=== PATIENT | male | born 1970 | race Caucasian/White ===

== ENCOUNTER 2020-04-21 13:50 | Outpatient (CLI) | payer BC, SELFPAY | END 2020-04-21 13:51 | disposition home or self-care (01) | LOC: CHSLAB 13:55 | PROVIDERS: PCP Family Medicine; Visit Provider Specialist | DX: L92.0 Granuloma annulare (principal) | CPT/HCPCS: 88305 ==

== ENCOUNTER 2021-06-28 00:39 | Day surgery (SDC) | payer BC, SELFPAY ==
[2021-06-11 15:25] VITALS: BMI 31.1
[2021-06-28 10:32] VITALS: BP 147/99; PULSE 91; RESP 18; TEMP 36.6; O2SAT 99
[2021-06-28] MEDS: LACTATED RINGERS 1,000 ML 150 ML IV CONT (10:41)
--- NOTE | 2021-06-28 10:58 | P.PNAN_ITS ---
Anes - Initial Pre Proc Eval Procedure: Operation Date: 06/28/21 12:30 Proposed Procedures p Screening Colonoscopy - Barrera Mo MD Date/Time: 06/28/21 10:58 Surgeon: Barrera Mo MD Pre Op Diagnosis: neoplasm screening Patient Data Age: 51 Gender: M Height: 1.85 m Weight: 109.7 kg Last Vital Signs Temp 98 F 06/28/21 10:32 Pulse 91 06/28/21 10:32 Resp 18 06/28/21 10:32 BP 147/99 H 06/28/21 10:32 Pulse Ox 99 06/28/21 10:32 Allergies Allergy/AdvReac Type Severity Reaction Status Date / Time No Known Allergies Allergy Verified 06/28/21 10:31 Home Medications Medication Instructions Recorded Confirmed Type levetiracetam 750 mg PO BID 06/11/21 06/11/21 History [id number]-vit K-lycop 1 tablet PO DAILY 06/11/21 06/11/21 History [Men's One Daily] Patient hx anesthesia problems: none Family hx anesthesia problems: none Results Review: All pre-operative results and documents have been reviewed as part of the pre-operative evaluation. [facility] Social History Social History Smoking status: Never smoker Alcohol intake: current Drinks per week: 14 Living arrangements: with family Spiritual care concerns: No Anes - Eval Final PreProcedure Day of Procedure 06/28/21 10:58 Patient weight: obese Heart: regular rate and rhythm Lungs: clear to auscultation Airway: Mallampati scale class III Neurological: alert and oriented Last oral intake: >/= 8 hours ASA classification: III Emergent: no Anesthetic plan: proceed Anesthesia type and monitoring: general GIVS and standard monitoring Results Review: All pre-operative results and documents have been reviewed as part of the pre-operative evaluation. Informed Consent: The patient's anesthetic plan and its attendant risks and benefits were discussed with the patient/family/POA. Questions were solicited and answers provided to the satisfaction of the patient/family/POA.
--- NOTE | 2021-06-28 10:59 | PM.HPGS ---
History of Present Illness History of Present Illness Consent: Risks, benefits, and alternatives have been discussed and questions answered. Patient agrees to proceed with procedure. Chief complaint: neoplasm screening Narrative: Jesse Girard is a 51 year old male here for first screening colonoscopy Review of Systems Constitutional: Constitutional: Denies headache(s) and Denies weakness Eyes: Eyes: Denies blurry vision ENT: Reports Normal hearing present, Denies headache(s) and Denies neck pain Cardiovascular: Cardiovascular: Denies chest pain and Denies dyspnea Respiratory: Respiratory: Denies dyspnea Gastrointestinal: Gastrointestinal: Reports no additional gastrointestinal complaints Genitourinary: Genitourinary: Denies dysuria Musculoskeletal: Musculoskeletal: Denies neck pain Integumentary/Breasts: Skin/Breast: Denies dry skin Neurologic: Reports Normal hearing present, Denies headache(s) and Denies weakness Psychiatric: Psychiatric: Denies anxiety Endocrine: Endocrine: Denies change in body appearance Hematologic/Lymphatic: Hematologic/Lymphatic: Denies easy bleeding Allergic/Immunologic: Allergic/Immunologic: Denies urticaria PMF Past Medical History Medical History (Updated 06/28/21 @ 10:59 by Barrera Mo MD) Colon cancer screening Social History Social History Smoking status: Never smoker Alcohol intake: current Drinks per week: 14 Living arrangements: with family Spiritual care concerns: No Meds Home Medications and Allergies Home Medications Medication Instructions Recorded Confirmed Type levetiracetam 750 mg PO BID 06/11/21 06/11/21 History fujvdflr-nbb-fpxcc-vit K-lycop 1 tablet PO DAILY 06/11/21 06/11/21 History [Men's One Daily] Allergies Allergy/AdvReac Type Severity Reaction Status Date / Time No Known Allergies Allergy Verified 06/28/21 10:31 Vital Signs Vital Signs - 24 hr 06/28/21 10:32 Temperature 98 F Pulse Rate 91 Respiratory Rate 18 Blood Pressure 147/99 H Pulse Oximetry 99 Exam Const: General: comfortable and no acute distress HENMT: General nose exam: Normal nares present Eyes: General: appearance normal, both eyes and all related structures Neck: Neck: no JVD Resp: Auscultation: clear to auscultation bilaterally Cardio: Rate: regular rate Rhythm: regular rhythm GI: Inspection: non-distended GI Palp: Yes Soft to palpation Skin: General skin exam: normal color Neuro: General: gait normal Speech: normal speech Extrem: General: normal to inspection Psych: Mental Status: mental status grossly normal Assessment and Plan Assessment and plan (1) Colon cancer screening: Code(s): Z12.11 - Encounter for screening for malignant neoplasm of colon Status: Acute Assessment and Plan: colonoscopy
[2021-06-28 11:15] VITALS: BP 126/78; PULSE 90; RESP 20; O2SAT 96
[2021-06-28 11:25] VITALS: BP 129/90; PULSE 83; RESP 29; O2SAT 97
[2021-06-28 11:35] VITALS: BP 138/96; PULSE 68; RESP 19; O2SAT 99
== END 2021-06-28 11:52 | disposition home or self-care (01) ==
PROVIDERS: PCP Family Medicine; Visit Provider Internal Medicine Gastroenterology
PROC: 0DJD8ZZ Inspection of Lower Intestinal Tract, Via Natural or Artificial Opening Endoscopic (ICD-10-PCS; CPT 45378; principal; 2021-06-28 12:30)
DX: Z12.11 Encounter for screening for malignant neoplasm of colon (principal); K64.8 Other hemorrhoids; D12.2 Benign neoplasm of ascending colon; E66.9 Obesity, unspecified; Z68.31 Body mass index [BMI] 31.0-31.9, adult
CPT/HCPCS: 45380; 88305; J2704; J7120

== ENCOUNTER 2023-03-21 07:39 | Outpatient (CLI) | payer BC, SELFPAY ==
--- NOTE | ~2023-03-21 | XR_ITS ---
XR wrist LT min 3V DATE: 03/21/2023 07:58 INDICATION: Left wrist pain for 5 months TECHNIQUE: 4 views COMPARISON: None FINDINGS: Prominent joint space narrowing as well as spurring at the first carpometacarpal joint cons istent with osteoarthritis. Moderate osteoarthritic change at the first metacarpophalangeal joint and mild osteophytic change at the second and third metacarpophalangeal joints. No fracture or dislocation, periosteal reaction or bone destruction or chondrocalcinosis is detected. IMPRESSION: Polyarticular osteoarthritis, most prominent at the first carpometacarpal joint Reviewed, dictated and finalized at location L. [employer] IMPRESSION: Polyarticular osteoarthritis, most prominent at the first carpometa carpal joint
== END 2023-03-21 07:40 | disposition home or self-care (01) ==
LOC: CHSIMG 07:42
PROVIDERS: PCP Family Medicine; Visit Provider Family Medicine
DX: M25.532 Pain in left wrist (principal); M19.032 Primary osteoarthritis, left wrist
CPT/HCPCS: 73110

== ENCOUNTER 2024-01-16 10:34 | Outpatient (CLI) | payer BC, SELFPAY ==
--- NOTE | ~2024-01-16 | XR_ITS ---
EXAMINATION: XR wrist RT min 3V DATE: 01/16/2024 10:48 INDICATION: Right wrist pain TECHNIQUE: Posteroanterior, ulnar deviation, oblique, and lateral views of the right wrist were obtai yanni. COMPARISON: 03/26/2014 FINDINGS: There is slight pulmonary and ulnar subluxation at the second metacarpophalangeal joint. There is wid ening of the scapholunate interval with increased scapholunate and lunocapitate angles consistent wit h scapholunate ligament insufficiency and secondary dorsal intercalated segment instability (DISI). N o fracture. Polyarticular osteoarthritis, moderate severity at the second metacarpophalangeal joint a nd radial scaphoid articulation and mild at the midcarpal, triscaphe and many of the remaining metaca rpophalangeal and interphalangeal joints. The disproportion predominance at the radial scaphoid artic ulation suggests secondary scapholunate advanced collapse (SLAC) wrist. Soft tissues are unremarkable . IMPRESSION: 1. 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 2. Additional mild to moderate polyarticular osteoarthritis. Reviewed, dictated and finalized at location B. IMPRESSION: 1. Constellation of findings consistent with chronic scapholunate ligament insu fficiency with secondary dorsal intercalated segment instability (DISI) and sca pholunate advanced collapse (SLAC) wrist with disproportionate moderate osteoar thritis at the radioscaphoid articulation. 2. Additional mild to moderate polyarticular osteoarthritis.
--- NOTE | ~2024-01-16 | XR_ITS ---
EXAMINATION: XR wrist LT min 3V DATE: 01/16/2024 10:48 INDICATION: Left wrist pain TECHNIQUE: Posteroanterior, ulnar deviation, oblique, and lateral views of the left wrist were obtain ed. COMPARISON: 03/21/2023 FINDINGS: Bone alignment is normal. No fracture. Polyarticular osteoarthritis, moderate severity at the first c arpometacarpal joint and fifth distal interphalangeal joint and mild at the triscaphe and multiple me tacarpophalangeal and interphalangeal joints. IMPRESSION: 1. Polyarticular osteoarthritis, moderate severity at the first carpal metacarpal and fifth distal in terphalangeal joints and otherwise mild. Reviewed, dictated and finalized at location B. IMPRESSION: 1. Polyarticular osteoarthritis, moderate severity at the first carpal metacarp al and fifth distal interphalangeal joints and otherwise mild.
== END 2024-01-16 10:35 | disposition home or self-care (01) ==
PROVIDERS: PCP Family Medicine; Visit Provider Plastic Surgery
DX: M19.032 Primary osteoarthritis, left wrist (principal); M19.031 Primary osteoarthritis, right wrist
CPT/HCPCS: 73110